=== PATIENT | male | born 1945 | race Caucasian/White ===

== ENCOUNTER 2023-01-07 22:11 | Inpatient (IN) | payer OTHER, MEDICAID ==
[~2023-01-07] VITALS: Ht 167.6 cm; Wt 82.8 kg
[2023-01-08] MEDS ORDERED: SODIUM CHLORIDE 0.9% 1,000 ML IV ONE
[2023-01-08 00:10] LABS: BASOPHILS % 0.7 % (0.0-2.0); EOSINOPHILS % 1.5 % (0.0-5.0); HEMOGLOBIN. 12.2 g/dL (14.0-18.0); LYMPHOCYTES % 22.1 % (20.0-50.0); MEAN CORPUSCULAR HEMOGLOBIN 30.3 pg (28.0-32.0); MEAN CORPUSCULAR VOLUME 89.4 fL (80.0-94.0); MEAN PLATELET VOLUME 7.9 fl (7.4-10.4); NEUTROPHILS % 67.7 % (40.0-76.0); PLATELET 209 x1000/uL (130-400); RED BLOOD CELL COUNT 4.03 mill/uL (4.7-6.1); RED CELL DISTRIBUTION WIDTH 13.1 % (11.6-14.6)
[2023-01-08 00:15] LABS: CHLORIDE 104 mEq/L (98-107)
[2023-01-08 03:16] LABS: CLARITY URINE CLEAR (CLEAR); COLOR URINE YELLOW (YELLOW); KETONES URINE NEGATIVE (NEGATIVE); LEUKOCYTE ESTERASE URINE NEGATIVE (NEGATIVE); NITRITE URINE NEGATIVE (NEGATIVE); OCCULT BLOOD URINE TRACE (NEGATIVE); PH URINE 6.5 (4.5-8.0); PROTEIN URINE 4+ (NEGATIVE); SPECIFIC GRAVITY URINE 1.019 (1.005-1.030); UROBILINOGEN URINE 0.2 E.U./dL (0.2-1.0)
[2023-01-08] MEDS ORDERED: DOCUSATE SODIUM 100MG CAPSULE PO PRN (04:45)
[2023-01-08] MEDS ORDERED: MAGNESIUM/ALUMINUM HYDROXIDE/SIMETHICONE 30ML UDC PO PRN (04:45)
[2023-01-08] MEDS ORDERED: ONDANSETRON HCL 4MG/2ML INJ IV PRN (04:45)
[2023-01-08] MEDS ORDERED: ENOXAPARIN 40MG/0.4ML SYR SUBCUT SCH (04:45)
[2023-01-08] MEDS ORDERED: IPRATROPIUM/ALBUTEROL 0.5-3(2.5)MG/3ML NEB NEB PRN (04:45)
[2023-01-08] MEDS ORDERED: ACETAMINOPHEN 325MG TABLET PO PRN ×2 (04:45)
[2023-01-08] MEDS: DEXT 5%/0.45% NACL 1000ML 1,000 ML IV SCH ×2 (05:00→06:00)
[2023-01-08] MEDS ORDERED: NITROGLYCERIN 0.4MG TABLET SL SL PRN (05:15)
[2023-01-08] MEDS ORDERED: ALBUTEROL (0.083%) 2.5MG/3ML NEB HHN PRN (05:30)
[2023-01-08] MEDS ORDERED: IPRATROPIUM BROMIDE (0.02%) 0.5MG/2.5ML NEB HHN PRN (05:30)
[2023-01-08] MEDS ORDERED: DEXTROSE 50% WATER 50ML SYRINGE IV PRN (05:45)
[2023-01-08 06:15] LABS: BASOPHILS % 0.9 % (0.0-2.0); EOSINOPHILS % 2.6 % (0.0-5.0); HEMATOCRIT. 38.7 % (42.0-52.0); HEMOGLOBIN. 13.1 g/dL (14.0-18.0); LYMPHOCYTES % 23.4 % (20.0-50.0); MEAN CORPUSCULAR HEMOGLOBIN 30.1 pg (28.0-32.0); MEAN CORPUSCULAR VOLUME 89.1 fL (80.0-94.0); MEAN PLATELET VOLUME 8.1 fl (7.4-10.4); MONOCYTES % 7.1 % (2.0-8.0); PLATELET 217 x1000/uL (130-400); RED BLOOD CELL COUNT 4.34 mill/uL (4.7-6.1); RED CELL DISTRIBUTION WIDTH 13.3 % (11.6-14.6)
[2023-01-08 06:22] LABS: CHLORIDE 104 mEq/L (98-107)
[2023-01-08 06:31] LABS: CREATINE KINASE MB FRACTION 5.3 ng/mL (0.5-3.6)
[2023-01-08 06:33] LABS: PHOSPHORUS 2.9 mg/dL (2.5-4.9)
[2023-01-08 06:36] LABS: HDL CHOLESTEROL 71 mg/dL (40-59); LDL CHOLESTEROL 58 mg/dL (5-100)
[2023-01-08 06:41] LABS: TOTAL IRON BINDING CAPACITY 239 ug/dL (250-450)
[2023-01-08 06:51] LABS: VITAMIN B12 SERUM 787 pg/mL (211-911)
[2023-01-08 07:37] LABS: FERRITIN 74 ng/mL (22-322)
[2023-01-08] MEDS: INSULIN LISPRO 100 UNITS/ML SUBCUT SCH ×4 (08:20→22:18)
[2023-01-08] MEDS: KCL 20MEQ/100ML PREMIX 100 ML IV SCH ×2 (08:26→10:00)
[2023-01-08] MEDS ORDERED: FAMOTIDINE 20MG/2ML VIAL IV SCH (09:00)
[2023-01-08] MEDS: BLOOD SUGAR DIAGNOSTIC STRIP TEST SCH ×4 (09:27→21:00)
[2023-01-08] MEDS: LISINOPRIL 5MG TABLET PO SCH (09:28)
[2023-01-08] MEDS: CLONIDINE 0.1MG TABLET PO PRN ×2 (10:44→15:57)
[2023-01-08] MEDS: FAMOTIDINE 20MG/2ML VIAL IV SCH (11:00)
[2023-01-08] MEDS ORDERED: POTASSIUM CHLORIDE 20MEQ/PACKET PO NR (11:15)
[2023-01-08] MEDS ORDERED: POTASSIUM CHLORIDE 20MEQ/PACKET PO ONE (11:15)
[2023-01-08 11:33] VITALS: BP 204/88
[2023-01-08 12:00] VITALS: BP 208/88
[2023-01-08 12:30] LABS: *AMPHETAMINES SCREEN URINE NEGATIVE (NEGATIVE); *BARBITURATES SCREEN URINE NEGATIVE (NEGATIVE); *BENZODIAZEPINES SCREEN URINE NEGATIVE (NEGATIVE); *COCAINE SCREEN URINE NEGATIVE (NEGATIVE); CANNABINOID URINE SCREEN NEGATIVE (NEGATIVE); METHADONE URINE SCREEN NEGATIVE (NEGATIVE); OPIATES URINE SCREEN NEGATIVE (NEGATIVE); PHENCYCLIDINE URINE SCREEN NEGATIVE (NEGATIVE)
[2023-01-08] MEDS ORDERED: INFLUENZA VACCINE 05/PF 0.5 ML SYRINGE IM ONE (13:15)
[2023-01-08] MEDS ORDERED: PNEUMOCOCCAL 23-VAL P-SAC VAC 0.5 ML IM ONE (13:15)
[2023-01-08 16:00] VITALS: BP 152/74
[2023-01-08] MEDS ORDERED: KCL 20MEQ/100ML PREMIX 100 ML IV SCH (16:00)
[2023-01-08] MEDS ORDERED: ATOR40TA70 PO (17:47)
[2023-01-08] MEDS ORDERED: MEMA5TAB42 PO (17:47)
[2023-01-08] MEDS ORDERED: ASPI-1406 PO (17:47)
[2023-01-08] MEDS ORDERED: LOSA25TA26 PO (17:47)
[2023-01-08 20:00] VITALS: BP 154/76
[2023-01-08 21:47] LABS: CREATINE KINASE MB FRACTION 4.8 ng/mL (0.5-3.6)
[2023-01-09] VITALS: BP 162/93
[2023-01-09] MEDS: CLONIDINE 0.1MG TABLET PO PRN ×4 (00:53→18:52)
[2023-01-09 04:00] VITALS: BP 182/73
[2023-01-09 06:02] LABS: CHLORIDE 110 mEq/L (98-107)
[2023-01-09 06:07] LABS: BASOPHILS % 1.1 % (0.0-2.0); HEMATOCRIT. 34.7 % (42.0-52.0); LYMPHOCYTES % 28.5 % (20.0-50.0); MEAN CORPUSCULAR HEMOGLOBIN 30.8 pg (28.0-32.0); MEAN CORPUSCULAR VOLUME 88.9 fL (80.0-94.0); MEAN PLATELET VOLUME 8.7 fl (7.4-10.4); MONOCYTES % 8.8 % (2.0-8.0); NEUTROPHILS % 57.6 % (40.0-76.0); PLATELET 167 x1000/uL (130-400); RED CELL DISTRIBUTION WIDTH 13.3 % (11.6-14.6)
[2023-01-09 06:08] LABS: PHOSPHORUS 2.6 mg/dL (2.5-4.9)
[2023-01-09] MEDS: BLOOD SUGAR DIAGNOSTIC STRIP TEST SCH ×4 (06:20→20:45)
[2023-01-09] MEDS: INSULIN LISPRO 100 UNITS/ML SUBCUT SCH ×4 (06:20→21:01)
[2023-01-09 08:00] VITALS: BP 157/67
[2023-01-09] MEDS: LISINOPRIL 5MG TABLET PO SCH (08:59)
[2023-01-09] MEDS: FAMOTIDINE 20MG/2ML VIAL IV SCH (09:00)
[2023-01-09] MEDS: ENOXAPARIN 30MG/0.3ML SYR SUBCUT SCH (09:00)
[2023-01-09] MEDS: SODIUM CHLORIDE 0.9% 1,000 ML IV SCH ×2 (09:02→21:02)
[2023-01-09] MEDS: INSULIN GLARGINE 100 UNITS/ML SUBCUT SCH (11:01)
[2023-01-09 12:00] VITALS: BP 163/56
[2023-01-09] MEDS: CLOPIDOGREL 75MG TABLET PO SCH (14:00)
[2023-01-09 16:00] VITALS: BP 172/67
[2023-01-09] MEDS ORDERED: LORAZEPAM 2MG/ML CPJ IM PRN (19:30)
[2023-01-09 20:00] VITALS: BP 176/63
[2023-01-10] VITALS (7 sets, daily range): BP systolic 148–220; BP diastolic 57–83
[2023-01-10] MEDS: CLONIDINE 0.1MG TABLET PO PRN ×3 (01:34→20:38)
[2023-01-10] MEDS: BLOOD SUGAR DIAGNOSTIC STRIP TEST SCH ×4 (05:33→20:28)
[2023-01-10] MEDS: INSULIN LISPRO 100 UNITS/ML SUBCUT SCH ×5 (05:33→21:51)
[2023-01-10] MEDS: LISINOPRIL 5MG TABLET PO SCH (06:16)
[2023-01-10 08:05] LABS: BASOPHILS % 0.8 % (0.0-2.0); EOSINOPHILS % 4.8 % (0.0-5.0); HEMATOCRIT. 34.1 % (42.0-52.0); HEMOGLOBIN. 11.8 g/dL (14.0-18.0); LYMPHOCYTES % 30.6 % (20.0-50.0); MEAN PLATELET VOLUME 8.7 fl (7.4-10.4); NEUTROPHILS % 55.8 % (40.0-76.0); PLATELET 162 x1000/uL (130-400); RED BLOOD CELL COUNT 3.79 mill/uL (4.7-6.1); RED CELL DISTRIBUTION WIDTH 13.3 % (11.6-14.6)
[2023-01-10] MEDS: ENOXAPARIN 30MG/0.3ML SYR SUBCUT SCH (08:38)
[2023-01-10] MEDS: FAMOTIDINE 20MG/2ML VIAL IV SCH (08:39)
[2023-01-10] MEDS: CLOPIDOGREL 75MG TABLET PO SCH (08:39)
[2023-01-10 09:20] LABS: CHLORIDE 109 mEq/L (98-107)
[2023-01-10 09:39] LABS: PHOSPHORUS 2.6 mg/dL (2.5-4.9)
[2023-01-10] MEDS: INSULIN GLARGINE 100 UNITS/ML SUBCUT SCH (10:41)
[2023-01-10] MEDS: SODIUM CHLORIDE 0.9% 1,000 ML IV SCH (11:40)
[2023-01-10] MEDS: HYDRALAZINE HCL 100MG TABLET PO SCH ×2 (12:09→20:38)
[2023-01-10] MEDS ORDERED: HYDRALAZINE HCL 50MG TABLET PO SCH (14:00)
[2023-01-11] VITALS: BP 103/67
[2023-01-11] MEDS: SODIUM CHLORIDE 0.9% 1,000 ML IV SCH ×2 (00:01→13:57)
[2023-01-11 04:00] VITALS: BP 172/68
[2023-01-11] MEDS: HYDRALAZINE HCL 100MG TABLET PO SCH ×3 (05:57→20:52)
[2023-01-11] MEDS: BLOOD SUGAR DIAGNOSTIC STRIP TEST SCH ×4 (05:57→20:51)
[2023-01-11] MEDS: INSULIN LISPRO 100 UNITS/ML SUBCUT SCH ×4 (07:10→20:54)
[2023-01-11 08:00] VITALS: BP 111/57
[2023-01-11] MEDS: LISINOPRIL 5MG TABLET PO SCH (08:39)
[2023-01-11] MEDS: ENOXAPARIN 30MG/0.3ML SYR SUBCUT SCH (08:39)
[2023-01-11] MEDS: CLOPIDOGREL 75MG TABLET PO SCH (08:39)
[2023-01-11] MEDS: FAMOTIDINE 20MG TABLET PO SCH (08:39)
[2023-01-11] MEDS: ASPIRIN 81MG TABLET PO SCH (10:49)
[2023-01-11] MEDS: INSULIN GLARGINE 100 UNITS/ML SUBCUT SCH (10:52)
[2023-01-11 12:00] VITALS: BP 138/36
[2023-01-11] MEDS: DORZOLAMIDE 2% OPHTH 10 ML BOTTLE BOTHEYE SCH ×2 (13:57→20:51)
[2023-01-11] MEDS: BRIMONIDINE 0.2% OPHTH DROPS 5ML BOTHEYE SCH ×2 (13:57→20:51)
[2023-01-11 16:00] VITALS: BP 124/61
[2023-01-11 20:00] VITALS: BP 154/61
[2023-01-11] MEDS: ATORVASTATIN CALCIUM 40MG TABLET PO SCH (20:51)
[2023-01-11] MEDS ORDERED: ATORVASTATIN CALCIUM 20MG TABLET PO SCH (21:00)
[2023-01-12] VITALS: BP 163/69
[2023-01-12] MEDS: CLONIDINE 0.1MG TABLET PO PRN (00:24)
[2023-01-12 04:00] VITALS: BP 165/65
[2023-01-12] MEDS: HYDRALAZINE HCL 100MG TABLET PO SCH ×3 (05:12→21:25)
[2023-01-12] MEDS: BRIMONIDINE 0.2% OPHTH DROPS 5ML BOTHEYE SCH ×3 (05:12→21:25)
[2023-01-12] MEDS: DORZOLAMIDE 2% OPHTH 10 ML BOTTLE BOTHEYE SCH ×3 (05:12→21:25)
[2023-01-12] MEDS: INSULIN LISPRO 100 UNITS/ML SUBCUT SCH ×4 (06:19→21:24)
[2023-01-12] MEDS: BLOOD SUGAR DIAGNOSTIC STRIP TEST SCH ×4 (06:19→21:25)
[2023-01-12] MEDS: SODIUM CHLORIDE 0.9% 1,000 ML IV SCH ×2 (06:20→17:00)
[2023-01-12 08:00] VITALS: BP 144/72
[2023-01-12] MEDS: CLOPIDOGREL 75MG TABLET PO SCH (09:13)
[2023-01-12] MEDS: ENOXAPARIN 30MG/0.3ML SYR SUBCUT SCH (09:13)
[2023-01-12] MEDS: FAMOTIDINE 20MG TABLET PO SCH (09:13)
[2023-01-12] MEDS: ASPIRIN 81MG TABLET PO SCH (09:13)
[2023-01-12] MEDS: LISINOPRIL 5MG TABLET PO SCH (09:13)
[2023-01-12] MEDS: INSULIN GLARGINE 100 UNITS/ML SUBCUT SCH (09:15)
[2023-01-12 12:00] VITALS: BP 119/74
[2023-01-12 16:00] VITALS: BP 152/68
[2023-01-12 20:00] VITALS: BP 124/74
[2023-01-12] MEDS: ATORVASTATIN CALCIUM 40MG TABLET PO SCH (21:24)
[2023-01-13] VITALS (8 sets, daily range): BP systolic 122–185; BP diastolic 47–79
[2023-01-13] MEDS ORDERED: HYDRALAZINE 20MG/ML VIAL IV NR (01:15)
[2023-01-13] MEDS: HYDRALAZINE HCL 100MG TABLET PO SCH ×3 (05:13→20:48)
[2023-01-13] MEDS: SODIUM CHLORIDE 0.9% 1,000 ML IV SCH ×2 (05:13→20:53)
[2023-01-13] MEDS: BRIMONIDINE 0.2% OPHTH DROPS 5ML BOTHEYE SCH ×3 (05:14→20:49)
[2023-01-13] MEDS: DORZOLAMIDE 2% OPHTH 10 ML BOTTLE BOTHEYE SCH ×3 (05:14→20:48)
[2023-01-13] MEDS: INSULIN LISPRO 100 UNITS/ML SUBCUT SCH ×4 (06:39→20:50)
[2023-01-13] MEDS: BLOOD SUGAR DIAGNOSTIC STRIP TEST SCH ×4 (06:39→20:49)
[2023-01-13] MEDS: ASPIRIN 81MG TABLET PO SCH (09:25)
[2023-01-13] MEDS: CLOPIDOGREL 75MG TABLET PO SCH (09:25)
[2023-01-13] MEDS: FAMOTIDINE 20MG TABLET PO SCH (09:26)
[2023-01-13] MEDS: LISINOPRIL 5MG TABLET PO SCH (09:26)
[2023-01-13] MEDS: ENOXAPARIN 30MG/0.3ML SYR SUBCUT SCH (09:26)
[2023-01-13] MEDS: INSULIN GLARGINE 100 UNITS/ML SUBCUT SCH (11:20)
[2023-01-13] MEDS ORDERED: AMLODIPINE 5MG TABLET PO NR (11:30)
[2023-01-13] MEDS: ATORVASTATIN CALCIUM 40MG TABLET PO SCH (20:47)
[2023-01-13] MEDS: AMLODIPINE 5MG TABLET PO SCH (20:48)
[2023-01-14 04:00] VITALS: BP 168/55
[2023-01-14] MEDS: HYDRALAZINE HCL 100MG TABLET PO SCH ×3 (05:51→21:08)
[2023-01-14] MEDS: BRIMONIDINE 0.2% OPHTH DROPS 5ML BOTHEYE SCH ×3 (05:51→21:08)
[2023-01-14] MEDS: DORZOLAMIDE 2% OPHTH 10 ML BOTTLE BOTHEYE SCH ×3 (05:51→21:08)
[2023-01-14] MEDS: BLOOD SUGAR DIAGNOSTIC STRIP TEST SCH ×4 (05:51→21:00)
[2023-01-14] MEDS: INSULIN LISPRO 100 UNITS/ML SUBCUT SCH ×5 (05:56→21:06)
[2023-01-14 08:00] VITALS: BP 163/64
[2023-01-14] MEDS: LISINOPRIL 5MG TABLET PO SCH (08:29)
[2023-01-14] MEDS: AMLODIPINE 5MG TABLET PO SCH ×2 (08:29→21:07)
[2023-01-14] MEDS: ASPIRIN 81MG TABLET PO SCH (08:29)
[2023-01-14] MEDS: CLOPIDOGREL 75MG TABLET PO SCH (08:29)
[2023-01-14] MEDS: FAMOTIDINE 20MG TABLET PO SCH (08:29)
[2023-01-14] MEDS: ENOXAPARIN 30MG/0.3ML SYR SUBCUT SCH (08:31)
[2023-01-14] MEDS ORDERED: AMLODIPINE 5MG TABLET PO SCH (09:00)
[2023-01-14] MEDS: SODIUM CHLORIDE 0.9% 1,000 ML IV SCH ×2 (09:00→21:21)
[2023-01-14] MEDS: INSULIN GLARGINE 100 UNITS/ML SUBCUT SCH (09:42)
[2023-01-14 12:00] VITALS: BP 123/72
[2023-01-14 20:00] VITALS: BP_SYST 130; BP_SYST 178; BP_DIAS 70; BP_DIAS 71
[2023-01-14] MEDS: ATORVASTATIN CALCIUM 40MG TABLET PO SCH (21:07)
[2023-01-15] VITALS: BP 136/54
[2023-01-15 04:00] VITALS: BP 147/62
[2023-01-15] MEDS: BRIMONIDINE 0.2% OPHTH DROPS 5ML BOTHEYE SCH ×3 (05:39→21:32)
[2023-01-15] MEDS: HYDRALAZINE HCL 100MG TABLET PO SCH ×3 (05:39→22:46)
[2023-01-15] MEDS: DORZOLAMIDE 2% OPHTH 10 ML BOTTLE BOTHEYE SCH ×3 (05:40→21:32)
[2023-01-15] MEDS: BLOOD SUGAR DIAGNOSTIC STRIP TEST SCH ×3 (05:42→21:32)
[2023-01-15] MEDS: INSULIN LISPRO 100 UNITS/ML SUBCUT SCH ×3 (05:58→21:00)
[2023-01-15 08:00] VITALS: BP 145/57
[2023-01-15] MEDS: ASPIRIN 81MG TABLET PO SCH (08:50)
[2023-01-15] MEDS: LISINOPRIL 5MG TABLET PO SCH (08:50)
[2023-01-15] MEDS: CLOPIDOGREL 75MG TABLET PO SCH (08:50)
[2023-01-15] MEDS: AMLODIPINE 5MG TABLET PO SCH ×2 (08:50→21:12)
[2023-01-15] MEDS: ENOXAPARIN 30MG/0.3ML SYR SUBCUT SCH (08:50)
[2023-01-15] MEDS: FAMOTIDINE 20MG TABLET PO SCH (08:50)
[2023-01-15] MEDS: INSULIN GLARGINE 100 UNITS/ML SUBCUT SCH (10:13)
[2023-01-15] MEDS: SODIUM CHLORIDE 0.9% 1,000 ML IV SCH (11:40)
[2023-01-15 12:00] VITALS: BP 158/58
[2023-01-15 16:00] VITALS: BP 128/50
[2023-01-15 20:00] VITALS: BP 166/59
[2023-01-15] MEDS: ATORVASTATIN CALCIUM 40MG TABLET PO SCH (21:07)
[2023-01-16] VITALS: BP 111/57
[2023-01-16] MEDS: SODIUM CHLORIDE 0.9% 1,000 ML IV SCH (00:57)
[2023-01-16 04:30] VITALS: BP 161/71
[2023-01-16] MEDS: BLOOD SUGAR DIAGNOSTIC STRIP TEST SCH ×2 (05:20→11:57)
[2023-01-16] MEDS: INSULIN LISPRO 100 UNITS/ML SUBCUT SCH ×2 (05:23→12:24)
[2023-01-16] MEDS: BRIMONIDINE 0.2% OPHTH DROPS 5ML BOTHEYE SCH ×2 (05:25→14:41)
[2023-01-16] MEDS: DORZOLAMIDE 2% OPHTH 10 ML BOTTLE BOTHEYE SCH ×2 (05:26→14:41)
[2023-01-16] MEDS: HYDRALAZINE HCL 100MG TABLET PO SCH ×2 (05:30→14:31)
[2023-01-16 08:00] VITALS: BP 150/55
[2023-01-16] MEDS: ENOXAPARIN 30MG/0.3ML SYR SUBCUT SCH (09:34)
[2023-01-16] MEDS: CLOPIDOGREL 75MG TABLET PO SCH (09:34)
[2023-01-16] MEDS: ASPIRIN 81MG TABLET PO SCH (09:34)
[2023-01-16] MEDS: AMLODIPINE 5MG TABLET PO SCH (09:35)
[2023-01-16] MEDS: LISINOPRIL 5MG TABLET PO SCH (09:35)
[2023-01-16] MEDS: FAMOTIDINE 20MG TABLET PO SCH (09:35)
[2023-01-16] MEDS: INSULIN GLARGINE 100 UNITS/ML SUBCUT SCH (09:36)
[2023-01-16 12:00] VITALS: BP 126/84
[2023-01-16] MEDS ORDERED: LACTULOSE 20G/30ML UDC PO PRN (14:15)
[2023-01-16 14:17] VITALS: BP 150/55
[2023-01-16 16:00] VITALS: BP 154/54
[2023-01-21 13:07] LABS: 25-HYDROXY VITAMIN D3 13 ng/mL (.)
== END 2023-01-16 17:11 | DRG 64 ==
LOC: ER 22:11 → MICUSO 01-08 03:43 → EDBEDREQTM 01-08 03:47 → EDBEDREQ 01-08 03:47 → 7EST 01-08 10:22
PROVIDERS: ADMIT Internal Medicine; ATTEND Internal Medicine
DX: I63.9 Cerebral infarction, unspecified (principal); E43 Unspecified severe protein-calorie malnutrition; G93.41 Metabolic encephalopathy; N17.0 Acute kidney failure with tubular necrosis; I50.31 Acute diastolic (congestive) heart failure; E87.20 Acidosis, unspecified; Z68.1 Body mass index [BMI] 19.9 or less, adult; G81.94 Hemiplegia, unspecified affecting left nondominant side; I13.0 Hypertensive heart and chronic kidney disease with heart failure and stage 1 through stage 4 chronic kidney disease, or unspecified chronic kidney disease; E11.36 Type 2 diabetes mellitus with diabetic cataract; H54.62 Unqualified visual loss, left eye, normal vision right eye; R13.10 Dysphagia, unspecified; E11.65 Type 2 diabetes mellitus with hyperglycemia; E78.5 Hyperlipidemia, unspecified; Z20.822 Contact with and (suspected) exposure to COVID-19; R26.81 Unsteadiness on feet; D18.1 Lymphangioma, any site; D63.1 Anemia in chronic kidney disease; N18.9 Chronic kidney disease, unspecified; E11.22 Type 2 diabetes mellitus with diabetic chronic kidney disease; Z79.899 Other long term (current) drug therapy; Z82.49 Family history of ischemic heart disease and other diseases of the circulatory system
CPT/HCPCS: 36415; 70544; 70553; 71045; 74230; 76770; 80053; 80061; 80305; 81003; 82306; 82550; 82553; 82570; 82607; 82728; 82746; 82962; 83036; 83540; 83550; 83605; 83735; 83880; 83930; 83935; 84100; 84300; 84439; 84443; 84484; 84540; 85025; 86850; 86900; 87426; 90686; 90732; 92610; 92611; 93005; 93306; 93880; 93970; 97112; 97116; 97162; 97166; 97530; 99291; C9803; J0360; J1650; J1815; J3480; J3490; J7030